=== PATIENT | male | born 1945 | race Caucasian/White ===

== ENCOUNTER → 2021-03-15 | Outpatient (CLI) | payer MEDICARE ==
--- NOTE | 2021-03-15 07:47 | US ---
EXAMINATION TYPE: US carotid duplex BILAT DATE OF EXAM: 03/15/2021 COMPARISON: NONE CLINICAL HISTORY: 75-year-old male R03.0 Elevated blood pressure readings,R42 Dizziness. TECHNIQUE: Carotid duplex ultrasound examination. Indirect Doppler criteria was utilized. FINDINGS: EXAM MEASUREMENTS: RIGHT: Peak Systolic Velocity (PSV) cm/sec ----- Right CCA: 100 ----- Right ICA: 90.3 ----- Right ECA: 143 ICA/CCA ratio: 0.9 RIGHT: End Diastole cm/sec ----- Right CCA: 24.4 ----- Right ICA: 32.1 ----- Right ECA: 27.3 LEFT: Peak Systolic Velocity (PSV) cm/sec ----- Left CCA: 109 ----- Left ICA: 123 ----- Left ECA: 123 ICA/CCA ratio: 1.1 LEFT: End Diastole cm/sec ----- Left CCA: 29.8 ----- Left ICA: 25.7 ----- Left ECA: 22.4 VERTEBRALS (direction of flow): Right Vertebral: Antegrade Left Vertebral: Antegrade Rhythm: Normal Jigger Operator notes: Noteable plaque in bilateral bulbs and prox ICA's IMPRESSION: Moderate atherosclerotic change at the bilateral carotid bifurcations. No hemodynamically significant ICA stenosis on either side. Criteria for Assigning % of Stenosis / Diameter reduction (Estimation based on the indirect measurements of the internal carotid artery velocities (ICA PSV). 1. Normal (no stenosis)=ICA PSV < 125 cm/s: ratio < 2.0: ICA EDV<40 cm/s. 2. Less than 50% stenosis=ICA PSV < 125 cm/s: ratio < 2.0: ICA EDV<40 cm/s. 3. 50 to 69% stenosis=ICA PSV of 125 to 230 cm/s: ration 2.0 ? 4.0: ICA EDV 40-100 cm/s. 4. Greater than 70% stenosis to near occlusion= ICA PSV > 230 cm/s: ratio > 4.0: ICA EDV > 100 cm/s. 5. Near occlusion= ICA PSV velocities may be low or undetectable: variable ratio and ICA EDV. 6. Total occlusion=unable to detect flow.
--- NOTE | 2021-03-15 12:02 | NM ---
EXAMINATION TYPE: NM stress cardiolite complete DATE OF EXAM: 03/15/2021 COMPARISON: NONE HISTORY: Dizziness and vertigo. Family history of heart disease. TECHNIQUE: After the intravenous administration of 9.5 mCi Tc 99m Sestamibi - Rest images obtained 4 5 minutes post injection. The patient exercised using a OFELIA protocol and 1 minute prior to peak e xercise was injected with 24.7 mCi Tc 99m Sestamibi - Stress images obtained 20 minutes post injectio n. FINDINGS: Targeted heart rate was achieved during performance of the study. Review of stress and rest SPECT terrance ges demonstrates no distinct perfusion abnormality. Gated analysis shows normal wall motion with an estimated left ventricular ejection fraction of 60 %. IMPRESSION: No scintigraphic evidence for reversible ischemia
--- NOTE | 2021-03-15 17:04 | ECHOF ---
Referral Reason:R03.0 Elevated blood pressure readings, R42 MEASUREMENTS -------- HEIGHT: 175.3 cm WEIGHT: 108.9 kg BP: RVIDd: 3.4 cm (< 3.3) IVSd: 1.2 cm (0.6 - 1.1) LVIDd: 4.6 cm (3.9 - 5.3) LVPWd: 1.3 cm (0.6 - 1.1) IVSs: 1.6 cm LVIDs: 2.8 cm LVPWs: 1.9 cm LAESV Index (A-L): 36.85 ml/m Ao Diam: 3.4 cm (2.0 - 3.7) AV Cusp: 1.8 cm (1.5 - 2.6) LA Diam: 4.3 cm (2.7 - 3.8) MV E Jeramie: 0.74 m/s MV DecT: 246 ms MV A Jeramie: 0.60 m/s MV E/A Ratio: 1.24 AR PHT: 617 ms RAP: 5.00 mmHg RVSP: 33.18 mmHg FINDINGS -------- Sinus rhythm. This was a technically difficult study with suboptimal views. The left ventricular size is normal. There is mild concentric left ventricular hypertrophy. Overa ll left ventricular systolic function is normal with, an EF between 55 - 60 %. The diastolic fillin g pattern is normal for the age of the patient 8.69. The right ventricle is mild to moderately enlarged. LA is moderately dilated 34-39 ml/m2 The right atrium was not well visualized. 5.0mg of Lumason was utilized for enhancement of images Interatrial and interventricular septum intact. The aortic valve was not well visualized. There is mild aortic valve sclerosis. There is mild aor tic regurgitation. There is no evidence of aortic stenosis. Mild mitral regurgitation is present. Mild tricuspid regurgitation present. There is no evidence of pulmonary hypertension. The right v entricular systolic pressure, as measured by Doppler, is 33.18mmHg. Trace/mild (physiologic) pulmonic regurgitation. The aortic root size is normal. IVC Not well visulized. There is no pericardial effusion. CONCLUSIONS -------- 1. The left ventricular size is normal. 2. There is mild concentric left ventricular hypertrophy. 3. Overall left ventricular systolic function is normal with, an EF between 55 - 60 %. 4. The diastolic filling pattern is normal for the age of the patient 8.69 5. The right ventricle is mild to moderately enlarged. 6. LA is moderately dilated 34-39 ml/m2 7. There is mild aortic valve sclerosis. 8. There is mild aortic regurgitation. 9. Mild mitral regurgitation is present. 10. Mild tricuspid regurgitation present. 11. Trace/mild (physiologic) pulmonic regurgitation. BELL RINGER: Allegra Guerra RDCS
--- NOTE | 2021-03-15 17:23 | P.STRESS ---
- Stress Test Note Stress Test Results/Findings: Exam Performed: NM stress cardiolite complete Exam Date: 03/15/21 Reason for Exam: Vertigo Height: 5 ft 9 in Weight: 108.862 kg Protocol: Theo Stage: 2 Duration of Exercise: 6:30 Resting Heart Rate: 54 Resting Blood Pressure: 134/75 Maximum Achieved Heart Rate: 129 Maximum Achieved Blood Pressure: 198/58 85% PMHR: 122 100% PMHR: 143 METS: 7.1 Technologist Comment: Stress Test Results/Findings: This is a 75-year-old gentleman being evaluated for symptoms of dizziness and family history of ischemic heart disease. Stress data: Baseline blood pressure is 134/75 with pulse rate of 54. Patient walked on the Theo protocol for 6 minutes and 30 seconds achieving a maximal heart rate of 129 with a blood pressure of 133/62. He did patient's blood pressure went up to 198/58 in the post exercise period. EKGs taken during exercise did not reveal significant changes of ischemia. Mild nonspecific ST-T changes were noted in the post x-rays. Which could be related to hypertensive response. Final impression: #1. Mild nondiagnostic ST-T changes which could be related to high blood pressure response and the post x-rays. #2. Patient did not express any chest pain #3. Report of the nuclear images which may more limited in this case will be provided with the radiologist.
== END | disposition home or self-care (01) ==
LOC: RADUSWWP 06:59
PROVIDERS: ATTEND Family Medicine
DX: I65.23 Occlusion and stenosis of bilateral carotid arteries (principal); I08.8 Other rheumatic multiple valve diseases; Z82.49 Family history of ischemic heart disease and other diseases of the circulatory system
CPT/HCPCS: 93017; 93880; 78452; C8929; A9500; Q9950; 93306

== ENCOUNTER → 2021-12-03 | Outpatient (CLI) | payer MEDICARE ==
--- NOTE | 2021-12-03 12:46 | CT ---
EXAMINATION TYPE: CT brain wo con DATE OF EXAM: 12/03/2021 COMPARISON: None available HISTORY: double vision out of left eye x [address] DLP: 1189 mGycm Automated exposure control for dose reduction was used. TECHNIQUE: CT scan of the brain is performed without IV contrast administration. FINDINGS: Brain volume loss changes, likely age-related. No acute intracranial hemorrhage. No gross acute corti itz infarct. No midline shift or herniation. Unremarkable adams-white matter differentiation, basal cisterns, sella and CP angles. No gross space-o ccupying lesion, vasogenic edema or mass effect. Unremarkable orbits. Mucosal thickening of the right maxillary sinus. Opacified right posterior masto id air cells. Unremarkable calvarial bones. IMPRESSION: No acute intracranial abnormality or gross space-occupying lesion by this nonenhanced CT scan. Further MRI assessment can be considered if clinically required.
== END | disposition home or self-care (01) ==
LOC: RADCTMAIN 12:15
PROVIDERS: ATTEND Family Medicine
DX: H53.2 Diplopia (principal)
CPT/HCPCS: 70450

== ENCOUNTER → 2022-01-11 | Outpatient (CLI) | payer MEDICARE ==
--- NOTE | 2022-01-11 13:32 | MR ---
EXAMINATION TYPE: MR brain and iac wo/w con DATE OF EXAM: 01/11/2022 COMPARISON: CT brain December 03, 2021 HISTORY: Double vision, 6th nerve palsy, left eye TECHNIQUE: Multiplanar, multisequence images of the brain and brainstem along with internal auditory canals are all performed without and with IV contrast, utilizing 11 mL intravenous Gadavist . FINDINGS: Diffusion weighted images demonstrate no evidence of a recent infarct or other diffusion ab normality. There is redemonstration of ventricular and sulcal prominence with degree of ventricular d ilatation out of proportion to degree of sulcal effacement. Fourth ventricle appears as prominent as additional ventricular system. Areas of T2 hyperintensity along the periventricular level likely refl ect transependymal flow of CSF. Midline structures demonstrate normal morphology. The craniocervical junction appears within normal limits. Post contrast images demonstrate no abnormal enhancement. The dural venous sinuses appear pa tent. The visualized sinuses are clear and the globes are intact. Some prominence of CSF in the optic nerves may be present. Increased fluid signal left mastoid air cells is seen. Vestibulocochlear complexes are symmetric and within normal limits. There is no suspicious enhancing cerebellopontine angle mass identified bilater ally. IMPRESSION: 1. New left sided mastoid fluid raising concern for left-sided mastoiditis, correlate clinically. 2. Mild diffuse age-related cerebral atrophy with mild to moderate generalized hydrocephalus felt pre sent. Correlate for possible NPH.
== END | disposition home or self-care (01) ==
LOC: RADMRIMAIN 12:12
PROVIDERS: ATTEND Family Medicine
DX: H49.22 Sixth [abducent] nerve palsy, left eye (principal); G31.9 Degenerative disease of nervous system, unspecified
CPT/HCPCS: 70553; A9585

== ENCOUNTER → 2022-01-25 | Outpatient (CLI) | payer MEDICARE ==
--- NOTE | 2022-01-25 09:23 | US ---
EXAMINATION TYPE: US carotid duplex BILAT DATE OF EXAM: 01/25/2022 COMPARISON: NONE CLINICAL HISTORY: R030 ; I65.29. double vision TECHNIQUE: Carotid duplex ultrasound examination. Indirect Doppler criteria was utilized. FINDINGS: EXAM MEASUREMENTS: RIGHT: Peak Systolic Velocity (PSV) cm/sec ----- Right CCA: 77.9 ----- Right ICA: 77.9 ----- Right ECA: 138.3 ICA/CCA ratio: 1.0 RIGHT: End Diastole cm/sec ----- Right CCA: 15.4 ----- Right ICA: 19.8 ----- Right ECA: 18.7 LEFT: Peak Systolic Velocity (PSV) cm/sec ----- Left CCA: 89.8 ----- Left ICA: 78.5 ----- Left ECA: 149.2 ICA/CCA ratio: 0.9 LEFT: End Diastole cm/sec ----- Left CCA: 18.7 ----- Left ICA: 13.9 ----- Left ECA: 149.2 VERTEBRALS (direction of flow): Right Vertebral: Antegrade Left Vertebral: Antegrade Rhythm: Normal DEVELOPMENTAL THERAPIST NOTES: No significant stenosis seen IMPRESSION: No evidence for hemodynamically significant stenosis. Criteria for Assigning % of Stenosis / Diameter reduction (Estimation based on the indirect measurements of the internal carotid artery velocities (ICA PSV). 1. Normal (no stenosis)=ICA PSV < 125 cm/s: ratio < 2.0: ICA EDV<40 cm/s. 2. Less than 50% stenosis=ICA PSV < 125 cm/s: ratio < 2.0: ICA EDV<40 cm/s. 3. 50 to 69% stenosis=ICA PSV of 125 to 230 cm/s: ration 2.0 ? 4.0: ICA EDV 40-100 cm/s. 4. Greater than 70% stenosis to near occlusion= ICA PSV > 230 cm/s: ratio > 4.0: ICA EDV > 100 cm/s. 5. Near occlusion= ICA PSV velocities may be low or undetectable: variable ratio and ICA EDV. 6. Total occlusion=unable to detect flow.
--- NOTE | 2022-01-25 12:56 | CA ---
Transthoracic Echo Report Name: Chris Hilton Age: 76 Gender: M : 1945 Exam Date: 01/25/2022 08:25 Exam Location: [facility] Ht (in): 68 Wt (lb): 242 Ordering Physician: Woody Joe MD Attending/Referring Phys: [id number], Heath Process Control Tech Lena Chase RDCS Procedure CPT: Indications: E03.0 elevated BP Cardiac Hx: Technical Quality: Good Contrast 1: Total Dose (mL): Contrast 2: Total Dose (mL): MEASUREMENTS (Male / Female) Normal Values 2D ECHO LV Diastolic Diameter PLAX 4.6 cm 4.2 - 5.9 / 3.9 - 5.3 cm LV Systolic Diameter PLAX 2.1 cm IVS Diastolic Thickness 1.1 cm 0.6 - 1.0 / 0.6 - 0.9 cm LVPW Diastolic Thickness 1.3 cm 0.6 - 1.0 / 0.6 - 0.9 cm LV Relative Wall Thickness 0.5 LVOT Diameter 1.5 cm LA Volume 54.7 cm??? 18 - 58 / 22 - 52 cm??? M-MODE Aortic Root Diameter MM 3.6 cm LA Systolic Diameter MM 4.6 cm LA Ao Ratio MM 1.3 MV E Point Septal Separation 0.2 cm AV Cusp Separation MM 1.3 cm DOPPLER AV Peak Velocity 273.5 cm/s AV Peak Gradient 29.9 mmHg AV Mean Velocity 193.8 cm/s AV Mean Gradient 17.0 mmHg AV Velocity Time Integral 53.8 cm AI Peak Velocity 388.3 cm/s AI Peak Gradient 60.3 mmHg AI Pressure Half Time 817.3 ms LVOT Peak Velocity 70.3 cm/s LVOT Peak Gradient 2.0 mmHg AV Area Cont Eq pk 0.5 cm??? MV Area PHT 2.9 cm??? MR Peak Velocity 232.1 cm/s MR Peak Gradient 21.5 mmHg Mitral E Point Velocity 84.3 cm/s Mitral A Point Velocity 95.6 cm/s Mitral E to A Ratio 0.9 MV Deceleration Time 262.0 ms TR Peak Velocity 107.6 cm/s TR Peak Gradient 4.6 mmHg Right Ventricular Systolic Press 9.6 mmHg FINDINGS Left Ventricle Left ventricular cavity size normal. Normal Left ventricular size, wall thickness, systolic function with no obvious regional wall motion abnormalities. Normal Left ventricular diastolic filling pattern. Left ventricular ejection fraction is estimated at 55-60 %. Right Ventricle The right ventricle is normal in size and function. Right Atrium The right atrium is normal in size. Left Atrium The left atrium is normal in size. Mitral Valve Structurally normal mitral valve without significant stenosis or prolapse. There is mild mitral regurgitation. Aortic Valve Diffuse thickening of the aortic valve cusps with reduced excursion. Mild-to- moderate aortic stenosis with a peak gradient of 30 mmHg and a mean gradient of 17 mmHg. Mild aortic regurgitation. DIANNE is 0.5cm2 by continuity equation. Tricuspid Valve Structurally normal tricuspid valve without significant stenosis. Pulmonary artery systolic pressure is normal. Mild tricuspid regurgitation. Pulmonic Valve Structurally normal pulmonic valve without significant stenosis. There is no pulmonic regurgitation. Pericardium Normal pericardium without effusion. Aorta Normal aortic root dimension. CONCLUSIONS Normal left ventricular dimension and systolic function Aortic sclerosis with moderate aortic stenosis Previewed by: Dr. Aric Rose MD (Electronically Signed) Final Date: 25 January 2022 12:55
== END | disposition home or self-care (01) ==
LOC: RADECHMAIN 08:16
PROVIDERS: ATTEND Family Medicine
DX: I35.8 Other nonrheumatic aortic valve disorders (principal); R03.0 Elevated blood-pressure reading, without diagnosis of hypertension; I65.29 Occlusion and stenosis of unspecified carotid artery; H53.2 Diplopia
CPT/HCPCS: 93306; 93880

== ENCOUNTER → 2022-10-21 | Outpatient (CLI) | payer MEDICARE ==
[2022-10-21 16:56] LABS: Basophils # (A) 0.06 X 10*3/uL (0.00-0.10); Basophils % (A) 0.7 %; Eosinophils # (A) 0.05 X 10*3/uL (0.04-0.35); Eosinophils % (A) 0.6 %; HCT 48.2 % (39.6-50.0); HGB 15.5 g/dL (13.0-17.0); Immature Grans, Automated 2.2 %; Lymphocytes # (A) 2.13 X 10*3/uL (0.90-5.00); Lymphocytes % (A) 25.7 %; MCH 29.2 pg (27.0-32.0); MCHC 32.2 g/dL (32.0-37.0); MCV 90.9 fL (80.0-97.0); Mean Platelet Volume 11.1 fL (9.5-12.2); Monocytes % (A) 7.2 %; NRBC Per 100 WBC 0 /100 WBCS (0.0-0.0); Neutrophils # (A) 5.26 X 10*3/uL (1.80-7.70); Neutrophils % (A) 63.6 %; Platelet Count 225 X 10*3/uL (140-440); RDW 13.5 % (11.5-14.5); WBC 8.28 X 10*3/uL (4.50-10.00)
== END | disposition home or self-care (01) ==
LOC: LABWHC1 11:02
PROVIDERS: ATTEND Family Medicine
DX: R42 Dizziness and giddiness (principal)
CPT/HCPCS: 36415; 85025

== ENCOUNTER → 2022-10-22 | Outpatient (CLI) | payer MEDICARE ==
--- NOTE | 2022-11-25 11:50 | P.CEMON ---
30 Day Event monitor note: Patient wore an event monitor for 20 days from 10/22/2022 through 11/19/2022. Findings: Patient's baseline heart rate was normal sinus rhythm. There were no signficant atrial fibrillation, atrial flutter, or ventricular tachycardia episodes. There were no significant pauses greater than 2 seconds. There were total of 68 patient activated and automatically captured events. Majority were symptoms not specified correlating with normal sinus rhythm. Occasionally dizziness/lightheadedness corresponding with normal sinus rhythm. There were rare automatically captured sinus bradycardia with heart rates in the high 40s to 50s which was asymptomatic. There were rare PVCs Conclusions: 30 day event monitor worn for a total of 20 days showing normal sinus rhythm, rare asymptomatic sinus bradycardia and rare PVCs. Patient activated events including dizziness/lightheadedness corresponding with normal sinus rhythm.
--- NOTE | 2022-11-26 12:51 | EM ---
30 Day Event monitor note: Patient wore an event monitor for 20 days from 10/22/2022 through 11/19/2022. Findings: Patient's baseline heart rate was normal sinus rhythm. There were no significant atrial fibrillation, atrial flutter, or ventricular tachycardia episodes. There were no significant pauses greater than 2 seconds. There were total of 68 patient activated and automatically captured events. Majority were symptoms not specified correlating with normal sinus rhythm. Occasionally dizziness/lightheadedness corresponding with normal sinus rhythm. There were rare automatically captured sinus bradycardia with heart rates in the high 40s to 50s which was asymptomatic. There were rare PVCs Conclusions: 30 day event monitor worn for a total of 20 days showing normal sinus rhythm, rare asymptomatic sinus bradycardia and rare PVCs. Patient activated events including dizziness/lightheadedness corresponding with normal sinus rhythm. [facility]
== END | disposition home or self-care (01) ==
LOC: RADECHMAIN 11:47
PROVIDERS: ATTEND Family Medicine
DX: R00.2 Palpitations (principal); R00.1 Bradycardia, unspecified; R42 Dizziness and giddiness
CPT/HCPCS: 93270

== ENCOUNTER → 2022-12-06 | Outpatient (CLI) | payer MEDICARE ==
--- NOTE | 2022-12-07 10:24 | CA ---
Transthoracic Echo Report Name: Chris Hilton Age: 77 Gender: M : 1945 Exam Date: 12/06/2022 13:58 Exam Location: [place] [facility] Ht (in): 68 Wt (lb): 245 Ordering Physician: Woody Joe MD Attending/Referring Phys: [id number], Heath Prick Stitcher Beverly Brar, [facility] Procedure CPT: Indications: R00.2 palpitations Cardiac Hx: Technical Quality: Fair Contrast 1: Total Dose (mL): Contrast 2: Total Dose (mL): MEASUREMENTS (Male / Female) Normal Values 2D ECHO LV Diastolic Diameter PLAX 3.8 cm 4.2 - 5.9 / 3.9 - 5.3 cm LV Systolic Diameter PLAX 2.5 cm IVS Diastolic Thickness 1.4 cm 0.6 - 1.0 / 0.6 - 0.9 cm LVPW Diastolic Thickness 1.3 cm 0.6 - 1.0 / 0.6 - 0.9 cm LV Relative Wall Thickness 0.7 RV Internal Dim ED PLAX 3.0 cm LA Systolic Diameter LX 3.4 cm 3.0 - 4.0 / 2.7 - 3.8 cm LV Diastolic Volume MOD 4C 98.1 cm??? LV Systolic Volume MOD 4C 50.7 cm??? LV Ejection Fraction MOD 4C 48.3 % LV Cardiac Index MOD 4C 1245.9 cm???/min???m??? LV Diastolic Length 4C 8.2 cm LV Systolic Length 4C 7.2 cm LV Diastolic Volume MOD 2C 76.3 cm??? LV Systolic Volume MOD 2C 39.5 cm??? LV Ejection Fraction MOD 2C 48.3 % LV Cardiac Index MOD 2C 968.6 cm???/min???m??? LV Diastolic Length 2C 8.2 cm LV Systolic Length 2C 7.0 cm LA Volume 70.7 cm??? 18 - 58 / 22 - 52 cm??? M-MODE Aortic Root Diameter MM 3.4 cm MV E Point Septal Separation 0.3 cm DOPPLER AV Peak Velocity 254.5 cm/s AV Peak Gradient 25.9 mmHg AV Mean Velocity 160.0 cm/s AV Mean Gradient 12.3 mmHg AV Velocity Time Integral 48.0 cm AI Peak Velocity 333.1 cm/s AI Peak Gradient 44.4 mmHg AI Pressure Half Time 624.1 ms LVOT Peak Velocity 164.0 cm/s LVOT Peak Gradient 10.8 mmHg MV Area PHT 2.7 cm??? Mitral E Point Velocity 49.6 cm/s Mitral A Point Velocity 80.6 cm/s Mitral E to A Ratio 0.6 MV Deceleration Time 284.7 ms TR Peak Velocity 255.2 cm/s TR Peak Gradient 26.1 mmHg Right Ventricular Systolic Press 31.1 mmHg FINDINGS Left Ventricle Left ventricular ejection fraction is estimated at 50-55 %. Small left ventricular cavity. Moderately increased septal wall thickness. Right Ventricle Normal right ventricular size and function. Right ventricular systolic pressure within normal limits. Right Atrium Normal right atrial size. Left Atrium Moderately increased left atrial volume. Mildly increased left atrial area. Mitral Valve Structurally normal mitral valve. No mitral stenosis, regurgitation or prolapse. Aortic Valve Trileaflet aortic valve. Aortic valve sclerosis. Mild aortic stenosis with a peak gradient of 26 mmHg and a mean gradient of 12 mmHg. Mild aortic regurgitation. Tricuspid Valve Structurally normal tricuspid valve. Mild tricuspid regurgitation. Pulmonic Valve Structurally normal pulmonic valve. Mild pulmonic regurgitation. Pericardium Normal pericardium. No pericardial effusion. Aorta Normal size aortic root and proximal ascending aorta. CONCLUSIONS Normal LV systolic function Mild aortic stenosis Mild aortic regurgitation Previewed by: Dr. Aguilar Espinoza MD (Electronically Signed) Final Date: 07 December 2022 10:23
== END | disposition home or self-care (01) ==
LOC: RADECHMAIN 13:45
PROVIDERS: ATTEND Family Medicine
DX: I08.2 Rheumatic disorders of both aortic and tricuspid valves (principal); R00.2 Palpitations
CPT/HCPCS: 93306

== ENCOUNTER → 2023-05-08 | Outpatient (CLI) | payer MEDICARE ==
--- NOTE | 2023-05-08 16:44 | US ---
EXAMINATION TYPE: US carotid duplex BILAT DATE OF EXAM: 05/08/2023 COMPARISON: 01/25/2022 CLINICAL INDICATION: Male, 78 years old with history of I65.29 OCCLUSION AND STENOSIS OF UNSPECIFIED CAROT; stenosis per order TECHNIQUE: Carotid duplex ultrasound examination. Indirect Doppler criteria was utilized. FINDINGS: EXAM MEASUREMENTS: RIGHT: Peak Systolic Velocity (PSV) cm/sec ----- Right CCA: 82.3 ----- Right ICA: 91.9 ----- Right ECA: 166.7 ICA/CCA ratio: 1.1 RIGHT: End Diastole cm/sec ----- Right CCA: 18.3 ----- Right ICA: 29.2 ----- Right ECA: 0.0 LEFT: Peak Systolic Velocity (PSV) cm/sec ----- Left CCA: 86.4 ----- Left ICA: 75.4 ----- Left ECA: 135.0 ICA/CCA ratio: 0.9 LEFT: End Diastole cm/sec ----- Left CCA: 16.0 ----- Left ICA: 21.5 ----- Left ECA: 20.4 VERTEBRALS (direction of flow): Right Vertebral: Antegrade Left Vertebral: Antegrade Rhythm: Normal NATIONAL EXPANSION RECRUITER NOTES: Mild plaque in bilateral bulb and bilateral ICA. Elevated velocities in bilateral ECA's. IMPRESSION: Less than 50% stenosis of the bilateral carotid bifurcations. Criteria for Assigning % of Stenosis / Diameter reduction (Estimation based on the indirect measurements of the internal carotid artery velocities (ICA PSV). 1. Normal (no stenosis)=ICA PSV < 125 cm/s: ratio < 2.0: ICA EDV<40 cm/s. 2. Less than 50% stenosis=ICA PSV < 125 cm/s: ratio < 2.0: ICA EDV<40 cm/s. 3. 50 to 69% stenosis=ICA PSV of 125 to 230 cm/s: ration 2.0 ? 4.0: ICA EDV 40-100 cm/s. 4. Greater than 70% stenosis to near occlusion= ICA PSV > 230 cm/s: ratio > 4.0: ICA EDV > 100 cm/s. 5. Near occlusion= ICA PSV velocities may be low or undetectable: variable ratio and ICA EDV. 6. Total occlusion=unable to detect flow.
== END | disposition home or self-care (01) ==
LOC: RADUSWWP 15:18
PROVIDERS: ATTEND Family Medicine
DX: I65.23 Occlusion and stenosis of bilateral carotid arteries (principal)
CPT/HCPCS: 93880

== ENCOUNTER → 2024-08-26 | Outpatient (CLI) | payer MEDICARE ==
--- NOTE | 2024-08-26 12:05 | MR ---
EXAMINATION TYPE: MR brain wo/w con DATE OF EXAM: 08/26/2024 11:50 AM COMPARISON: 5 01/11/2022. 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 The patient was then given intravenous contrast and multi planar, T1 fat-saturation images wer e obtained. IV Contrast: 10ml mL Gadobutrol FINDINGS: Improved aeration of the left mastoid air cell from 2021. No abnormal enhancement within the the temp oral bones/vestibule/cranial nerves cranial nerve VIII. Mild cerebral atrophy with proportional dilat ion of ventricular system. Diffusion-weighted imaging shows no evidence of restricted diffusion to s uggest acute/subacute infarct. Intracranial arterial flow voids are maintained. Midline structures sh ow no abnormality. Scattered foci of high T2 signal intensity are seen within the periventricular whi te matter. The susceptibility weighted images do not reveal any evidence for micro-hemorrhage. After administration of gadolinium, no abnormal enhancement is seen. The bone marrow signal is within normal limits. Paranasal sinuses and mastoid air cells: No significant paranasal sinus disease. Visualized orbits: Orbital contents are intact. IMPRESSION: 1. No evidence of intracranial mass, acute/subacute infarct, or abnormal enhancement. 2. Nonspecific white matter changes, likely related to small vessel ischemic disease. 3. No abnormal enhancement within the temporal bones /vestibule/cranial nerve VIII. [facility], , 08/26/2024 12:03 PM
== END | disposition home or self-care (01) ==
LOC: RADMRIMAIN 10:30
PROVIDERS: ATTEND Psychiatry & Neurology Neurology
DX: H81.20 Vestibular neuronitis, unspecified ear (principal); R26.89 Other abnormalities of gait and mobility; G91.2 (Idiopathic) normal pressure hydrocephalus; R90.82 White matter disease, unspecified
CPT/HCPCS: 70553; A9585

== ENCOUNTER → 2024-09-02 | Outpatient (CLI) | payer MEDICARE | END | disposition home or self-care (01) | LOC: LABWHC1 09:07 | PROVIDERS: ATTEND Urology | DX: R97.20 Elevated prostate specific antigen [PSA] (principal) | CPT/HCPCS: 36415; 84153 ==